=== PATIENT | female | born 1950 | race American Indian/Alaskan Native ===

== ENCOUNTER 2016-04-15 11:30 | Emergency (ER) | payer MEDICARE ==
--- NOTE | 2016-04-15 12:31 | Emergency Department Report ---
Chief Complaint: Abdominal Pain Stated Complaint: LLQ ABD PAIN Time Seen by Provider: 04/15/16 12:28 - HPI History of Present Illness: 65 y/o female complain of abdominal pain x 1 day .pt state she feel nausea .pt state start feeling abdominal pain after eating . - ROS Review of Systems: per HPI - Exam Vital Signs: Vital Signs 04/15/16 11:43 Temperature 98.9 F Pulse Rate 92 H Respiratory 22 Rate Blood Pressure 164/114 O2 Sat by Pulse 97 Oximetry Physical Exam: GENERAL: The patient is well-developed and well-nourished. Patient is in NAD. HENT: Normocephalic. Atraumatic. Patient has moist mucous membranes. Throat: No erythema, swelling or exudates. EYES: Extraocular motions are intact, PERRL NECK: Supple. No meningitic signs are noted. There is no adenopathy noted. CHEST/LUNGS: Clear to auscultation bilaterally. No wheezing, rales or rhonchi noted. There is no respiratory distress noted. HEART/CARDIOVASCULAR: Regular rate and rhythm. Normal S1 S2. No murmurs, rubs , clicks, or gallops. ABDOMEN: Abdomen is soft, nontender.. Bowel sounds normoactive. There is no abdominal distention. Negative rebound tenderness. : Deferred. SKIN: There is no rash. There is no edema. There is no diaphoresis. NEURO: The patient is A&Ox3. The patient has no focal neurologic deficits. MUSCULOSKELETAL: There is no tenderness or deformity. There is no limitation range of motion. PSYCH: Pt has appropriate mood and affect. MSE screening note: Focused history and physical exam performed. Due to findings the following was ordered: ED Disposition for MSE Condition: Stable Instructions: Abdominal Pain (ED)
[2016-04-15 12:57] LABS: Basophils % (Auto) 0.6 % (0.0-1.8); Eosinophils % (Auto) 2.1 % (0.0-4.3); Hematocrit 36.7 % (30.3-42.9); Hemoglobin 12.4 gm/dl (10.1-14.3); Mean Corpuscular HGB Conc 34 % (30-34); Mean Corpuscular Hemoglobin 32 pg (28-32); Mean Corpuscular Volume 94 fl (79-97); Platelet Count 182 K/mm3 (140-440); Red Blood Count 3.91 M/mm3 (3.65-5.03); Red Cell Distribution Width 13.5 % (13.2-15.2); White Blood Count 6.2 K/mm3 (4.5-11.0)
[2016-04-15 13:11] LABS: Anion Gap 19 mmol/L; BUN/Creatinine Ratio 21.42; Blood Urea Nitrogen 15 mg/dL (7-17); Calcium 8.9 mg/dL (8.4-10.2); Carbon Dioxide 25 mmol/L (22-30); Chloride 105.5 mmol/L (98-107); Glucose 108 mg/dL (65-100); Lipase 76 units/L (13-60); Potassium 3.5 mmol/L (3.6-5.0); Sodium 146 mmol/L (137-145)
[2016-04-15] MEDS ORDERED: ZOFRAN IV ONE (23:44)
[2016-04-15] MEDS ORDERED: MORPHINE IV ONE (23:44)
[2016-04-15] MEDS ORDERED: K-DUR PO ONE (23:45)
[2016-04-15] MEDS ORDERED: NACL ONE (23:53)
[2016-04-16 00:09] LABS: Bilirubin,Urine NEG (Negative); Blood,Urine NEG (Negative); Ketones,Urine TR mg/dL (Negative); Leukocyte Esterase,Urine TR (Negative); Mucus,Urine 3+ /HPF; Nitrite,Urine NEG (Negative); Urobilinogen,Urine < 2.0 mg/dL (<2.0)
--- NOTE | 2016-04-16 00:11 | Emergency Department Report ---
ED Abdominal Pain HPI - General Chief Complaint: Abdominal Pain Stated Complaint: LLQ ABD PAIN Time Seen by Provider: 04/15/16 23:29 Source: patient Mode of arrival: Ambulatory Limitations: No Limitations - History of Present Illness Initial Comments: 65-year-old female with a past medical history of previous CVA, diabetes, GERD, hypertension, previous surgical history hysterectomy presents to Hospital complaints of left lower quadrant and inguinal pains since today. Pain is intermittent, stabbing in nature. Pain is rated 9/10 in intensity. Worse with movement and walking. No specific alleviating factors reported. Initially denied nausea vomiting but developed nausea after arrival to the ED. No reported vomiting, dysuria, hematuria, diarrhea, or fever. Yesterday had a episode where her feet got tripped up in stay she might have strained her lower abdomen in the process. PMD: Dr. Titi Moreau Severity scale (0 -10): 9 - Related Data Home Medications Medication Instructions Recorded Confirmed Last Taken ALPRAZolam [Xanax TAB] 0.25 mg PO DAILY 01/08/14 11/17/14 01/07/14 Aspirin/Dipyridamole [Aggrenox] 1 cap PO BID 01/08/14 11/17/14 01/07/14 Atorvastatin Calcium [Lipitor] 20 mg PO QHS 01/08/14 11/17/14 01/07/14 Famotidine [Pepcid] 20 mg PO DAILY 01/08/14 11/17/14 01/07/14 Latanoprost 0.005% [Xalatan 0.005%] 1 drop OP QPM 01/08/14 11/17/14 01/07/14 Losartan/Hydrochlorothiazide 1 each PO DAILY 01/08/14 11/17/14 01/07/14 [Hyzaar 100-25 Tablet] Metformin HCl [Metformin HCl] 500 mg PO PRN PRN 01/08/14 11/17/14 01/07/14 Metoprolol [Lopressor TAB] 25 mg PO BID 01/08/14 11/17/14 01/07/14 Verapamil ER [Calan Sr] 480 mg PO DAILY 01/08/14 11/17/14 01/07/14 Previous Rx's Medication Instructions Recorded Last Taken Type Compression Socks, Medium [Futuro 1 each MC ONCE #1 each 01/08/14 Unknown Rx Restoring] Ibuprofen [Motrin] 600 mg PO Q8H PRN #30 tablet 04/16/16 Unknown Rx traMADol [Ultram 50 MG tab] 50 mg PO Q6HR PRN #20 tablet 04/16/16 Unknown Rx Allergies Allergy/AdvReac Type Severity Reaction Status Date / Time No Known Allergies Allergy Verified 01/08/14 00:09 ED Review of Systems ROS: Stated complaint: LLQ ABD PAIN Other details as noted in HPI Comment: All other systems reviewed and negative Other: Constitutional: No fevers chills Eyes: No eye pain visual changes ENT: No ear pain or throat pain Neck: Denies pain Respiratory: Denies cough wheezing shortness of breath Cardiovascular: Denies chest pain, palpitations, syncope GI: As per HPI : Denies dysuria, urinary frequency, or urgency Musculoskeletal: Denies back pain, joint swelling Skin: Denies rash, lesions, erythema Neurologic: Denies headache, numbness, weakness Psychiatric: Denies suicidal ideation, hallucinations ED Past Medical Hx - Past Medical History Previous Medical History?: Yes Hx Hypertension: Yes Hx CVA: Yes (multiple) Hx Diabetes: Yes Hx GERD: Yes Hx Psychiatric Treatment: Yes (depression anxiety) Additional medical history: sleep apnea/cpap, glaucoma osteoporisis gall stones chronic back pain, left side weakness is residual from CVA - Surgical History Past Surgical History?: Yes Additional Surgical History: hysterectomy, Tonsillectomy, Breast surgery for milk ducts to be assessed, Back surgery - Social History Smoking Status: Never Smoker Substance Use Type: Alcohol, Prescribed - Medications Home Medications: Home Medications Medication Instructions Recorded Confirmed Last Taken Type ALPRAZolam [Xanax TAB] 0.25 mg PO DAILY 01/08/14 11/17/14 01/07/14 History Aspirin/Dipyridamole [Aggrenox] 1 cap PO BID 01/08/14 11/17/14 01/07/14 History Atorvastatin Calcium [Lipitor] 20 mg PO QHS 01/08/14 11/17/14 01/07/14 History Compression Socks, Medium [Futuro 1 each MC ONCE #1 each 01/08/14 11/17/14 Unknown Rx Restoring] Famotidine [Pepcid] 20 mg PO DAILY 01/08/14 11/17/14 01/07/14 History Latanoprost 0.005% [Xalatan 0.005%] 1 drop OP QPM 01/08/14 11/17/14 01/07/14 History Losartan/Hydrochlorothiazide 1 each PO DAILY 01/08/14 11/17/14 01/07/14 History [Hyzaar 100-25 Tablet] Metformin HCl [Metformin HCl] 500 mg PO PRN PRN 01/08/14 11/17/14 01/07/14 History Metoprolol [Lopressor TAB] 25 mg PO BID 01/08/14 11/17/14 01/07/14 History Verapamil ER [Calan Sr] 480 mg PO DAILY 01/08/14 11/17/14 01/07/14 History Ibuprofen [Motrin] 600 mg PO Q8H PRN #30 tablet 04/16/16 Unknown Rx traMADol [Ultram 50 MG tab] 50 mg PO Q6HR PRN #20 tablet 04/16/16 Unknown Rx ED Physical Exam - General Limitations: No Limitations - Other Other exam information: General: No limitations, patient is alert in no acute distress Head exam: Atraumatic, normocephalic Eyes exam: Normal appearance, pupils equal reactive to light, extraocular movements intact ENT: Moist mucous membrane, normal oropharynx Neck exam: Normal inspection, full range of motion, no meningismus nontender Respiratory exam: Clear to auscultation bilateral, no wheezes, rales, crackles Cardiovascular: Normal rate and rhythm, normal heart sounds Abdomen: Soft, nondistended, and lower left lower quadrant and inguinal tenderness, with normal bowel sounds, no rebound, or guarding Extremity: Full range of motion normal inspection no deformity Back: Normal Inspection, full range of motion, no tenderness Neurologic: Alert, oriented x3, cranial nerves intact, no motor or sensory deficit Psychiatric: normal affect, normal mood Skin: Warm, dry, intact ED Course Vital Signs 04/15/16 04/15/16 04/15/16 11:43 17:23 20:16 Temperature 98.9 F 98.1 F 97.8 F Pulse Rate 92 H 81 89 Respiratory 22 20 18 Rate Blood Pressure 164/114 198/116 158/101 O2 Sat by Pulse 97 97 97 Oximetry 04/16/16 04/16/16 04/16/16 00:43 00:53 00:56 Temperature Pulse Rate Respiratory 18 Rate Blood Pressure 182/108 O2 Sat by Pulse 100 88 99 Oximetry 04/16/16 00:58 Temperature Pulse Rate 82 Respiratory Rate Blood Pressure O2 Sat by Pulse Oximetry - Reevaluation(s) Reevaluation #1: 04/16/16 01:05 Patient treated morphine, Toradol, Zofran, and by mouth potassium Reevaluation #2: 04/16/16 01:09 Blood pressure improved compared to initial. She did not take her blood pressure medication and was instructed to do so at this time prior to discharge ED Medical Decision Making - Lab Data Result diagrams: 04/15/16 12:42 04/15/16 12:42 Lab Results 04/15/16 04/15/16 04/15/16 Range/Units 12:42 12:42 23:49 WBC 6.2 (4.5-11.0) K/mm3 RBC 3.91 (3.65-5.03) M/mm3 Hgb 12.4 (10.1-14.3) gm/dl Hct 36.7 (30.3-42.9) % MCV 94 (79-97) fl MCH 32 (28-32) pg MCHC 34 (30-34) % RDW 13.5 (13.2-15.2) % Plt Count 182 (140-440) K/mm3 Lymph % (Auto) 25.8 (13.4-35.0) % [place] % (Auto) 6.3 (0.0-7.3) % Eos % (Auto) 2.1 (0.0-4.3) % Baso % (Auto) 0.6 (0.0-1.8) % Lymph # 1.6 (1.2-5.4) K/mm3 [place] # 0.4 (0.0-0.8) K/mm3 Eos # 0.1 (0.0-0.4) K/mm3 Baso # 0.0 (0.0-0.1) K/mm3 Seg Neutrophils % 65.2 (40.0-70.0) % Seg Neutrophils # 4.0 (1.8-7.7) K/mm3 Sodium 146 H (137-145) mmol/L Potassium 3.5 L (3.6-5.0) mmol/L Chloride 105.5 (98-107) mmol/L Carbon Dioxide 25 (22-30) mmol/L Anion Gap 19 mmol/L BUN 15 (7-17) mg/dL Creatinine 0.7 (0.7-1.2) mg/dL Estimated GFR > 60 ml/min BUN/Creatinine Ratio 21.42 % Glucose 108 H (65-100) mg/dL Calcium 8.9 (8.4-10.2) mg/dL Lipase 76 H (13-60) units/L Urine Color [place] (Yellow) Urine Turbidity Clear (Clear) Urine pH 5.0 (5.0-7.0) Ur Specific [place] 1.036 H (1.003-1.030) Urine Protein 30 mg/dl (Negative) mg/dL Urine Glucose (UA) Neg (Negative) mg/dL Urine Ketones Tr (Negative) mg/dL Urine Blood Neg (Negative) Urine Nitrite Neg (Negative) Urine Bilirubin Neg (Negative) Urine Urobilinogen < 2.0 (<2.0) mg/dL Ur Leukocyte Esterase Tr (Negative) Urine WBC (Auto) 4.0 (0.0-6.0) /HPF Urine RBC (Auto) 1.0 (0.0-6.0) /HPF U Epithel Cells (Auto) 3.0 (0-13.0) /HPF Urine Mucus 3+ /HPF - Radiology Data Radiology results: report reviewed (CT abdomen and pelvis with IV contrast: No acute findings) - Medical Decision Making Plan discharge patient home with pain medication for abdominal wall and inguinal strain. Other workup ED workup unremarkable - Differential Diagnosis diverticulitis, muscle strain, UTI, renal colic Critical Care Time: No Critical care attestation.: If time is entered above; I have spent that time in minutes in the direct care of this critically ill patient, excluding procedure time. ED Disposition Clinical Impression: HTN (hypertension) Inguinal muscle strain Qualifiers: Encounter type: initial encounter Qualified Code(s): S39.013A - Strain of muscle, fascia and tendon of pelvis, initial encounter Strain of abdominal wall Qualifiers: Encounter type: initial encounter Qualified Code(s): S39.011A - Strain of muscle, fascia and tendon of abdomen, initial encounter Disposition: DISCHARGED TO HOME OR SELFCARE Is pt being admited?: No Does the pt Need Aspirin: No Condition: Stable Instructions: Abdominal Pain (ED), Muscle Strain (ED), Hypertension (ED) Additional Instructions: Take the medication as prescribed and as needed for pain. Follow-up with your doctor within 3-5 days. Return if symptoms worsen. Prescriptions: Ibuprofen [Motrin] 600 mg PO Q8H PRN #30 tablet PRN Reason: Pain traMADol [Ultram 50 MG tab] 50 mg PO Q6HR PRN #20 tablet PRN Reason: Pain Referrals: TITI MOREAU MD [Primary Care Provider] - 3-5 Days Time of Disposition: 01:07
--- NOTE | 2016-04-16 00:55 | Cat Scan Report ---
FINAL REPORT EXAM: CT ABDOMEN PELVIS W CON HISTORY: llq pain TECHNIQUE: CT abdomen and pelvis with IV contrast. Multiplanar reformations. PRIORS: None FINDINGS: Lung bases show no significant abnormality. No free intraperitoneal gas seen. Moderate cardiac enlargement. Liver shows no significant abnormality. Normal biliary tree. Spleen shows no significant abnormality. Adrenal glands show no significant abnormality. Kidneys show no significant abnormality. Pancreas shows no significant abnormality. Abdominal aorta is non-aneurysmal. No bowel obstruction identified. Normal-appearing appendix. No right lower quadrant inflammatory changes. Numerous sigmoid diverticula. No diverticulitis seen. A few diverticula noted arising from the terminal ileum. No ureteral calculus seen on either side. Status post T12 vertebroplasty. IMPRESSION: 1. No acute finding.
[2016-04-16] MEDS ORDERED: TORADOL IV ONE (01:05)
[2016-04-16 02:08] VITALS: BP 141/97
== END 2016-04-16 02:08 | disposition home or self-care (01) ==
LOC: ED 11:30
DX: S39.011A Strain of muscle, fascia and tendon of abdomen, initial encounter (principal); S39.013A Strain of muscle, fascia and tendon of pelvis, initial encounter; I10 Essential (primary) hypertension; R11.0 Nausea; I63.9 Cerebral infarction, unspecified; E11.9 Type 2 diabetes mellitus without complications; K21.9 Gastro-esophageal reflux disease without esophagitis; F32.9 Major depressive disorder, single episode, unspecified; F41.9 Anxiety disorder, unspecified; G89.29 Other chronic pain; H40.9 Unspecified glaucoma; Z79.82 Long term (current) use of aspirin; X58.XXXA Exposure to other specified factors, initial encounter; Y93.9 Activity, unspecified; Y99.9 Unspecified external cause status; Y92.89 Other specified places as the place of occurrence of the external cause
CPT/HCPCS: 36415; 74177; 80048; 81001; 83690; 85025; 96374; 96375; 99284; J1885; J2270; J2405; Q9967

== ENCOUNTER 2016-09-06 05:52 | Inpatient (IN) | payer MEDICARE ==
[2016-09-06] MEDS ORDERED: NACL 0.9% 500 ML 500 ML ONE (06:27)
[2016-09-06] MEDS ORDERED: NACL 0.9% 500 ML 500 ML IV SCH (07:00)
[2016-09-06 07:05] LABS: Anion Gap 15 mmol/L; BUN/Creatinine Ratio 15.71; Blood Urea Nitrogen 11 mg/dL (7-17); Calcium 9.2 mg/dL (8.4-10.2); Carbon Dioxide 30 mmol/L (22-30); Chloride 99.7 mmol/L (98-107); Glucose 163 mg/dL (65-100); Potassium 3.9 mmol/L (3.6-5.0); Sodium 141 mmol/L (137-145)
[2016-09-06] MEDS ORDERED: CALAN ONE (08:10)
[2016-09-06] MEDS ORDERED: HEPARIN 10,000 UNITS/10 ML ONE (08:10)
[2016-09-06] MEDS ORDERED: HEPARIN/NS 5000 UNIT/500ML(CATH LAB) 1,000 ML IR ONE (08:10)
[2016-09-06] MEDS ORDERED: NITROGLYCERIN SYRINGE 3 ML ONE (08:11)
[2016-09-06] MEDS ORDERED: XYLOCAINE 2% INFILTRATI ONE (08:11)
[2016-09-06] MEDS ORDERED: VERSED ONE (08:12)
[2016-09-06] MEDS ORDERED: SUBLIMAZE ONE (08:13)
[2016-09-06 08:24] LABS: INR 1.04 (0.87-1.13)
[2016-09-06 08:28] LABS: Basophils % (Auto) 0.7 % (0.0-1.8); Eosinophils % (Auto) 2.3 % (0.0-4.3); Mean Corpuscular HGB Conc 33 % (30-34); Mean Corpuscular Hemoglobin 32 pg (28-32); Mean Corpuscular Volume 95 fl (79-97); Platelet Count 169 K/mm3 (140-440); Red Blood Count 3.48 M/mm3 (3.65-5.03); Red Cell Distribution Width 13.5 % (13.2-15.2); White Blood Count 5.2 K/mm3 (4.5-11.0)
--- NOTE | 2016-09-06 13:04 | Short Stay Summary ---
Short Stay Documentation Date of service: 09/06/16 - History H&P: obtained from office - Allergies and Medications Current Medications: Allergies No Known Allergies Allergy (Verified 01/08/14 00:09) Home Medications Medication Instructions Recorded Confirmed Last Taken Type ALPRAZolam [Xanax TAB] 0.25 mg PO DAILY 01/08/14 09/06/16 09/05/16 History Atorvastatin Calcium [Lipitor] 20 mg PO QHS 01/08/14 09/06/16 09/05/16 History Compression Socks, Medium [Futuro 1 each MC ONCE #1 each 01/08/14 09/06/16 Unknown Rx Restoring] Famotidine [Pepcid] 20 mg PO DAILY 01/08/14 09/06/16 09/05/16 History Latanoprost 0.005% [Xalatan 0.005%] 1 drop OP QPM 01/08/14 09/06/16 09/05/16 History Metformin HCl [Metformin HCl] 500 mg PO BID PRN 01/08/14 09/06/16 09/05/16 History Metoprolol [Lopressor TAB] 25 mg PO BID 01/08/14 09/06/16 09/05/16 History Amlodipine Besylate [Amlodipine 5 mg PO DAILY 09/06/16 09/06/16 09/05/16 History Besylate] Ascorbic Acid [Vitamin C] 1,000 mg PO DAILY 09/06/16 09/06/16 09/05/16 History Aspirin [Aspirin TAB] 325 mg PO DAILY 09/06/16 09/06/16 09/05/16 History Calcium Carb/D3/Magnesium/Zinc [Sv 1 each PO DAILY 09/06/16 09/06/16 09/05/16 History [id number]-Vit D Cplt] Carvedilol [Coreg] 25 mg PO BID 09/06/16 09/06/16 09/05/16 History Cholecalciferol Vit D3 [Vitamin D3] 1,000 unit PO QDAY 09/06/16 09/06/16 History Cyanocobalamin/Folic Acid [Vitamin 1 each PO DAILY 09/06/16 09/06/16 09/05/16 History [id number] Acid Tablet] Furosemide [Furosemide] 40 mg PO 3XW 09/06/16 09/06/16 09/04/16 History Lutein 6 mg PO DAILY 09/06/16 09/06/16 09/05/16 History Potassium Chloride [Potassium 20 meq PO 3XW 09/06/16 09/06/16 09/04/16 History Chloride] Vitamin B Complex [B Complex] 1 each PO DAILY 09/06/16 09/06/16 09/05/16 History Vitamin E 400 unit PO DAILY 09/06/16 09/06/16 09/05/16 History glipiZIDE [Glipizide Xl] 10 mg PO DAILY 09/06/16 09/06/16 09/05/16 History Active Medications Sodium Chloride (Nacl 0.9% 500 Ml) 500 mls @ 50 mls/hr IV DIRECT JUS Stop: 09/06/16 16:59 Last Admin: 09/06/16 07:30 Dose: 50 mls/hr - Physical exam General appearance: no acute distress Integumentary: no rash HEENT: Atraumatic Lungs: Clear to auscultation Breasts: deferred Heart: Regular rate Gastrointestinal: normal Female Genitourinary: deferred Rectal Exam: deferred Extremities: no ischemia Neurological: Normal gait - Brief post op/procedure progress note Date of procedure: 09/06/16 Pre-op diagnosis: Chest Pain Post-op diagnosis: same Procedure: LHC and LV gram Anesthesia: MAC Findings: Significant three vessel disease Surgeon: LILIYA MEIER Estimated blood loss: none Pathology: none Condition: stable - Hospital course Hospital course: Uneventful - Disposition Condition at discharge: Good Disposition: DC/TX ANOTHER TYPE HEALTHCARE Short Stay Discharge Plan Activity: advance as tolerated Weight Bearing Status: Non-Weight Bearing Diet: low fat, low cholesterol, low salt, diabetic Wound: keep clean and dry Special Instructions: hold Metformin (for 48 hours) Follow up with: GERMAN MOREAU MD [Primary Care Provider] - 7 Days
--- NOTE | 2016-09-06 13:08 | Cardiac Catherization Report ---
INDICATION: Unstable angina, [place] class 3 with intermediate risk myocardial perfusion scan. ORDERING PHYSICIAN: Dr. Colon. PROCEDURES PERFORMED: 1. Selective left and right coronary angiography. 2. Left ventriculography. DESCRIPTION OF PROCEDURE: After obtaining written consent, the patient was draped using sterile technique. A 2% lidocaine was injected into the right wrist. A 5-Mal[place] vascular sheath was inserted into the right radial artery. A 5-[place]aw[place] JL3.5 catheter was used to selectively engage the left coronary artery. A 5-[place] multipurpose catheter was used to selectively inject the right coronary artery. A 5-[place] pigtail catheter was used to perform a left ventriculogram. No complications occurred during the procedure. Hemostasis was achieved at the end of the procedure using manual pressure. ESTIMATED BLOOD LOSS: Minimal. SPECIMEN REMOVED: None. SEDATION: Administered was 1 mg of Versed and 50 mcg of IV fentanyl. FINDINGS: HEMODYNAMICS: The aortic pressure was 154/64. The left ventricular systolic pressure was 147 mmHg with a left ventricular end-diastolic pressure of 19 mmHg. The left ventricular ejection fraction was estimated at 50%. There is evidence of mild aortic valve sclerosis. The proximal portion of the aortic root is within normal limits. CORONARY ANATOMY: 1. This is a right dominant circulation. 2. The left main is angiographically normal. 3. The left anterior descending artery has evidence of a focal 80 to 90% ostial LAD stenosis followed by an aneurysmal dilation and subsequently there is a long 50% lesion involving the proximal and mid LAD. The first diagonal artery is a small caliber vessel. The second diagonal artery has mild diffuse disease. The mid and distal LAD has mild diffuse disease and is a good target for revascularization. 4. The left circumflex artery exhibits an 80 to 90% focal stenosis at the ostium of a large obtuse marginal. Otherwise, no significant stenosis noted throughout the rest of the left circumflex artery. 5. The right coronary artery is a dominant vessel. The right coronary artery exhibits evidence of a focal 70% proximal stenosis, focal 70% mid stenosis, diffuse tubular 60% PDA stenosis and a diffuse tubular 60 to 70% PDA stenosis and a tubular 60% PLV stenosis. IMPRESSION: 1. Significant 3-vessel disease with evidence of an 80 to 90% ostial, proximal LAD followed by aneurysmal dilatation and 50% tubular lesion involving the proximal and mid vessel. 2. 80 to 90% ostial stenosis of a large first obtuse marginal. 3. Scattered 60 to 70% stenosis involving the proximal, mid and distal right coronary artery. 4. Left ventricular ejection fraction estimated at 50%. RECOMMENDATIONS: Given the complexity of the coronary artery disease and the involvement of the ostial LAD in proximity to the distal left main, we will proceed with coronary artery bypass grafting. The patient will be transferred to [facility] for further management and evaluation. JOB# [id number] [place]
[2016-09-06] MEDS ORDERED: TYLENOL PO PRN (14:31)
[2016-09-06] MEDS ORDERED: DULCOLAX PR PRN (14:31)
[2016-09-06] MEDS ORDERED: MILK OF MAGNESIA PO PRN (14:31)
[2016-09-06] MEDS ORDERED: ZOFRAN IV PRN (14:31)
--- NOTE | 2016-09-06 14:38 | History and Physical Report ---
History of Present Illness Date of examination: 09/06/16 History of present illness: H&P obtained from the office Medications and Allergies Allergies Allergy/AdvReac Type Severity Reaction Status Date / Time No Known Allergies Allergy Verified 01/08/14 00:09 Home Medications Medication Instructions Recorded Confirmed Last Taken Type ALPRAZolam [Xanax TAB] 0.25 mg PO BID 01/08/14 09/06/16 09/05/16 History Atorvastatin Calcium [Lipitor] 20 mg PO QHS 01/08/14 09/06/16 09/05/16 History Compression Socks, Medium [Futuro 1 each MC ONCE #1 each 01/08/14 09/06/16 Unknown Rx Restoring] Famotidine [Pepcid] 20 mg PO DAILY 01/08/14 09/06/16 09/05/16 History Latanoprost 0.005% [Xalatan 0.005%] 1 drop OP QPM 01/08/14 09/06/16 09/05/16 History Metformin HCl 500 mg PO BID PRN 01/08/14 09/06/16 09/05/16 History Metoprolol [Lopressor TAB] 25 mg PO BID 01/08/14 09/06/16 09/05/16 History Amlodipine Besylate 5 mg PO DAILY 09/06/16 09/06/16 09/05/16 History Ascorbic Acid [Vitamin C] 1,000 mg PO DAILY 09/06/16 09/06/16 09/05/16 History Aspirin [Aspirin TAB] 325 mg PO DAILY 09/06/16 09/06/16 09/05/16 History Calcium Carb/D3/Magnesium/Zinc [Sv 1 each PO DAILY 09/06/16 09/06/16 09/05/16 History [id number]-Ojn-Qesy-Vit D Cplt] Carvedilol [Coreg] 25 mg PO BID 09/06/16 09/06/16 09/05/16 History Cholecalciferol Vit D3 [Vitamin D3] 1,000 unit PO QDAY 09/06/16 09/06/16 History Cyanocobalamin/Folic Acid [Vitamin 1 each PO DAILY 09/06/16 09/06/16 09/05/16 History [id number]-[id number] Acid Tablet] Furosemide 40 mg PO 3XW 09/06/16 09/06/16 09/04/16 History Lutein 6 mg PO DAILY 09/06/16 09/06/16 09/05/16 History Potassium Chloride 20 meq PO 3XW 09/06/16 09/06/16 09/04/16 History Vitamin B Complex [B Complex] 1 each PO DAILY 09/06/16 09/06/16 09/05/16 History Vitamin E 400 unit PO DAILY 09/06/16 09/06/16 09/05/16 History glipiZIDE [Glipizide Xl] 10 mg PO DAILY 09/06/16 09/06/16 09/05/16 History Active Meds: Active Medications Acetaminophen (Tylenol) 650 mg PO Q4H PRN PRN Reason: Pain MILD(1-3)/Fever >100.5/DONIS Bisacodyl (Dulcolax) 10 mg IA QDAY PRN PRN Reason: Constipation unrelieved by MOM Enoxaparin Sodium (Lovenox) 30 mg SUB-Q QDAY JUS Sodium Chloride (Nacl 0.9% 500 Ml) 500 mls @ 50 mls/hr IV DIRECT JUS Stop: 09/06/16 16:59 Last Admin: 09/06/16 07:30 Dose: 50 mls/hr Magnesium Hydroxide (Milk Of Magnesia) 30 ml PO Q4H PRN PRN Reason: Constipation Ondansetron HCl (Zofran) 4 mg IV Q8H PRN PRN Reason: N/V unrelieved by Reglan Physical Examination Vital Signs Temp Pulse Resp BP Pulse Ox 97.8 F 68 18 143/76 95 09/06/16 06:20 09/06/16 06:20 09/06/16 06:20 09/06/16 06:20 09/06/16 06:20 Results 09/06/16 06:40 09/06/16 06:40 Coagulation 09/06/16 09/06/16 Range/Units 06:40 06:40 PT 13.5 (12.2-14.9) Sec. INR 1.04 (0.87-1.13) APTT 30.9 (24.2-36.6) Sec. CBC 09/06/16 Range/Units 06:40 WBC 5.2 (4.5-11.0) K/mm3 RBC 3.48 L (3.65-5.03) M/mm3 Hgb 11.0 (10.1-14.3) gm/dl Hct 33.0 (30.3-42.9) % Plt Count 169 (140-440) K/mm3 Lymph # 1.1 L (1.2-5.4) K/mm3 [place] # 0.5 (0.0-0.8) K/mm3 Eos # 0.1 (0.0-0.4) K/mm3 Baso # 0.0 (0.0-0.1) K/mm3 Comprehensive Metabolic Panel 09/06/16 Range/Units 06:40 Sodium 141 (137-145) mmol/L Potassium 3.9 (3.6-5.0) mmol/L Chloride 99.7 (98-107) mmol/L Carbon Dioxide 30 (22-30) mmol/L BUN 11 (7-17) mg/dL Creatinine 0.7 (0.7-1.2) mg/dL Glucose 163 H (65-100) mg/dL Calcium 9.2 (8.4-10.2) mg/dL Assessment and Plan Unstable angina LHC done today showed significant three vessel disease, EF 50% Plan: Awaits transfer to [facility] for CT surgery evaluation for bypass grafting.
[2016-09-06 16:06] VITALS: BP 164/92
[2016-09-06] MEDS ORDERED: K-DUR PO SCH (17:00)
[2016-09-06] MEDS ORDERED: LASIX PO SCH (17:00)
[2016-09-06] MEDS ORDERED: COREG PO SCH (22:00)
[2016-09-06] MEDS ORDERED: XANAX PO SCH (22:00)
[2016-09-07] MEDS ORDERED: CALTRATE PLUS PO SCH (10:00)
[2016-09-07] MEDS ORDERED: CALCIUM CARB PO SCH (10:00)
[2016-09-07] MEDS ORDERED: NON-FORMULARY (Ascorbic Acid [Vitamin C] 1,000 MG) PO SCH (10:00)
[2016-09-07] MEDS ORDERED: GLUCOTROL XL PO SCH (10:00)
[2016-09-07] MEDS ORDERED: FOLIC ACID PO SCH (10:00)
[2016-09-07] MEDS ORDERED: ASPIRIN PO SCH (10:00)
[2016-09-07] MEDS ORDERED: VITAMIN E CAP PO SCH (10:00)
[2016-09-07] MEDS ORDERED: LOVENOX SUB-Q SCH ×2 (10:00)
[2016-09-07] MEDS ORDERED: NORVASC PO SCH (10:00)
[2016-09-07] MEDS ORDERED: VITAMIN C PO SCH (10:00)
[2016-09-07] MEDS ORDERED: VITAMIN D3 PO SCH (10:00)
[2016-09-07] MEDS ORDERED: D3 PO SCH (10:00)
[2016-09-07] MEDS ORDERED: MAGNESIUM PO SCH (10:00)
[2016-09-07] MEDS ORDERED: ZINC PO SCH (10:00)
[2016-09-07] MEDS ORDERED: NON-FORMULARY (Vitamin B Complex [B Complex] 1 EACH) PO SCH (10:00)
[2016-09-07] MEDS ORDERED: PEPCID PO SCH (10:00)
[2016-09-07] MEDS ORDERED: ALLBEE WITH C PO SCH (10:00)
[2016-09-07] MEDS ORDERED: LUTEIN 6 MG PO SCH (10:00)
[2016-09-07] MEDS ORDERED: CYANOCOBALAMIN PO SCH (10:00)
[2016-09-07] MEDS ORDERED: VITAMIN E 400 UNIT PO SCH (10:00)
== END 2016-09-06 16:42 | disposition critical access hospital (66) | DRG 287 ==
LOC: OPU 05:52 → 4A 14:31
PROVIDERS: ADMIT Internal Medicine; ATTEND Internal Medicine
PROC: 4A023N7 Measurement of Cardiac Sampling and Pressure, Left Heart, Percutaneous Approach (ICD-10-PCS; principal; 2016-09-06)
PROC: B2111ZZ Fluoroscopy of Multiple Coronary Arteries using Low Osmolar Contrast (ICD-10-PCS; 2016-09-06)
PROC: B2151ZZ Fluoroscopy of Left Heart using Low Osmolar Contrast (ICD-10-PCS; 2016-09-06)
DX: I25.730 Atherosclerosis of nonautologous biological coronary artery bypass graft(s) with unstable angina pectoris (principal); I35.0 Nonrheumatic aortic (valve) stenosis; F41.9 Anxiety disorder, unspecified; M19.90 Unspecified osteoarthritis, unspecified site; F32.9 Major depressive disorder, single episode, unspecified; E11.9 Type 2 diabetes mellitus without complications; I10 Essential (primary) hypertension; E78.5 Hyperlipidemia, unspecified; Z86.73 Personal history of transient ischemic attack (TIA), and cerebral infarction without residual deficits
CPT/HCPCS: 36415; 80048; 85025; 85610; 85730; 93005; 93010; 93458; C1894; J1644; J2250; J3010; J7040; Q9967

== ENCOUNTER 2016-10-30 08:38 | Outpatient (CLI) | payer MEDICARE ==
[2016-10-30 08:53] LABS: Hematocrit 39.2 % (30.3-42.9); Hemoglobin 12.9 gm/dl (10.1-14.3); Mean Corpuscular HGB Conc 33 % (30-34); Mean Corpuscular Hemoglobin 31 pg (28-32); Mean Corpuscular Volume 94 fl (79-97); Platelet Count 235 K/mm3 (140-440); Red Blood Count 4.19 M/mm3 (3.65-5.03); Red Cell Distribution Width 14.2 % (13.2-15.2); White Blood Count 5.3 K/mm3 (4.5-11.0)
[2016-10-30 09:11] LABS: Albumin 4.3 g/dL (3.9-5); Albumin/Globulin Ratio 1.2 %; BUN/Creatinine Ratio 10.83; Bilirubin,Total 0.7 mg/dL (0.1-1.2); Calcium 9.5 mg/dL (8.4-10.2); Potassium 3.9 mmol/L (3.6-5.0); Total Protein 7.8 g/dL (6.3-8.2)
[2016-10-31 22:12] LABS: Vitamin D, 25-OH, Total 39 ng/mL (30-100)
== END 2016-10-30 08:39 | disposition home or self-care (01) ==
LOC: LAB 08:38
DX: E11.9 Type 2 diabetes mellitus without complications (principal); J18.9 Pneumonia, unspecified organism; I10 Essential (primary) hypertension; Z79.899 Other long term (current) drug therapy
CPT/HCPCS: 36415; 80053; 80061; 82306; 83036; 84436; 84439; 84443; 85027

== ENCOUNTER 2017-01-01 08:44 | Outpatient (CLI) | payer MEDICARE ==
--- NOTE | 2017-01-01 11:37 | Mammography Report ---
Screening mammogram: Routine views demonstrate a generally symmetric breast pattern with intermediate fibroglandular density. There are scattered subcentimeter sized nodules throughout both breasts. No architectural distortion and no suspicious calcification. CAD used. Impression: Nodular breast pattern. Recommendation: Comparison exams are being requested. A followup report and recommendation will be issued when these are made available. BI-RADS CATEGORY: 0 = Needs additional imaging evaluation ACR BI-RADS MAMMOGRAPHIC CODES: 0 = Needs additional imaging evaluation; 1 = Negative; 2 = Benign; 3 = Probably benign; 4 = Suspicious; 5 = Malignant; 6 = Known biopsy-proven malignancy COMMENT: 1. Dense breast tissue, i.e., adenosis, fibrocystic changes, etc., may obscure an underlying neoplasm. 2. Approximately 10% of cancers are not detected with mammography. 3. A negative mammography report should not delay biopsy if a clinically suspicious mass is present.
--- NOTE | 2017-01-01 11:39 | Mammography Report ---
BONE DENSITY STUDY: Postmenopausal osteoporosis. DEFINITIONS: BMD = Bone Mineral Density T-score = BMD related to mean peak bone mass of young adult (mean expressed in Standard Deviation) Z-score = Age matched BMD expressed in SD World Health Organization (WHO) Diagnostic Criteria Normal T-score > -1 SD Osteopenia T-score between -1 and -2.4 SD Osteoporosis T-score -2.5 SD or below FINDINGS: The weighted average BMD of lumbar spine L1-L4 is 0.704 with a T-score of -3.1. The weighted average BMD of the left hip is 0.703 with a T-score of -2.0. The BMD of the femoral neck is 0.553 with a T. value score of -2.7. IMPRESSION: The patient's average T-score is diagnostic for osteoporosis and high relative risk for fracture. NOTE: BMD is not the only risk factor for fracture; also consider factors such as the patient's age, risk of falling, previous osteoporotic fracture, family history of osteoporotic fractures, current smoker, and low body weight. Montoya's triangle is a region of interest in femur, predominantly of trabecular bone. It is not a true anatomic site, and ISCD does not recommend its use clinically.
== END 2017-01-01 08:45 | disposition home or self-care (01) ==
LOC: MAMMO 08:44
DX: Z12.31 Encounter for screening mammogram for malignant neoplasm of breast (principal); M81.0 Age-related osteoporosis without current pathological fracture; I10 Essential (primary) hypertension; Z78.0 Asymptomatic menopausal state
CPT/HCPCS: 77080; G0202; 77067

== ENCOUNTER 2019-05-20 15:00 | Emergency (ER) | payer MEDICARE ==
[2019-05-20 15:05] VITALS: BP 151/77
--- NOTE | 2019-05-20 17:03 | Event Note ---
ED Screening Note Date of service: 05/20/19 Time: 16:59 ED Screening Note: 68 y/o female comes in for left ankle pain and left hip pain. Pain denies any injury or trauma. Patient has not taking anything for pain. Patient does admit that she has arthritis all over her body. This initial assessment/diagnostic orders/clinical plan/treatment(s) is/are subject to change based on patients health status, clinical progression and re- assessment by fellow clinical providers in the ED. Further treatment and workup at subsequent clinical providers discretion. Patient/guardian urged not to elope from the ED as their condition may be serious if not clinically assessed and managed. Initial orders include:
--- NOTE | 2019-05-20 17:09 | Emergency Department Report ---
Chief Complaint: Extremity Injury, Lower Stated Complaint: LEFT ANKLE Time Seen by Provider: 05/20/19 16:58 - HPI History of Present Illness: 68 y/o female comes in for left ankle pain and left hip pain. Pain denies any injury or trauma. Patient has not taking anything for pain. Patient does admit that she has arthritis all over her body. - Exam Vital Signs: Vital Signs 05/20/19 15:04 Temperature 98.8 F Pulse Rate 66 Respiratory 16 Rate Blood Pressure 151/77 O2 Sat by Pulse 96 Oximetry Physical Exam: AxO times 3 NAD Left lower ankle FROM no swelling on tenderness to touch. non erythematous Left Hip FROM no tenderness at the great trocanter no tenderness Ambulatory without difficulties. MSE screening note: Focused history and physical exam performed. Due to findings the following was ordered: 68 y/o female comes in for left ankle pain and left hip pain. Pain denies any injury or trauma. Patient has not taking anything for pain. Patient does admit that she has arthritis all over her body. Recommend patient to take over the counter pain medication and to follow up with your Primary Care Provider. ED Disposition for MSE Disposition: Z- MED SCREENING EXAM-LEFT Is pt being admited?: No Does the pt Need Aspirin: No Condition: Stable Additional Instructions: Recommend patient to take over the counter pain medication and to follow up with your Primary Care Provider.
== END 2019-05-20 17:04 | disposition left against medical advice (07) ==
LOC: ED 15:00
DX: M25.552 Pain in left hip (principal); M25.572 Pain in left ankle and joints of left foot
CPT/HCPCS: 99281